=== PATIENT | female | born 1960 | race Hispanic/Latino ===

== ENCOUNTER 2017-12-04 01:20 | Emergency (ER) | payer OTHER ==
[~2017-12-04] VITALS: Ht 160 cm; Wt 149.7 kg
[2017-12-04] MEDS ORDERED: DEXAMETHASONE SOD PHOS 10 MG/1 ML VIAL INJ ONE (02:00)
== END 2017-12-04 02:15 | disposition home or self-care (01) ==
LOC: FSED 01:20 → EDBD 01:20 → FSED 02:15
DX: R42 Dizziness and giddiness (principal); J02.9 Acute pharyngitis, unspecified
CPT/HCPCS: 36415; 82948; 99282; J1100

== ENCOUNTER 2018-11-24 20:52 | Inpatient (IN) | payer OTHER ==
[~2018-11-24] VITALS: Ht 160 cm; Wt 140.2 kg
--- NOTE | 2018-11-24 21:56 | Diagnostic Imaging Report ---
EXAMINATION: PA and lateral views of the chest. COMPARISON: None CLINICAL HISTORY: Chest pain since yesterday DISCUSSION: Lines/tubes: None. Lungs: The lungs are well inflated and clear. There is no evidence of pneumonia or pulmonary edema. Pleura: There is no pleural effusion or pneumothorax. Heart and mediastinum: Cardiomediastinal silhouette is unremarkable. Pulmonary vasculature is normal. Bones and soft tissues: No acute bony abnormalities. Age appropriate degenerative changes in the thoracic spine IMPRESSION: No acute cardiopulmonary abnormalities. Signed by: Dr. Dax Glynn M.D. on 11/24/2018 9:53 PM
[2018-11-24] MEDS ORDERED: ASPIRIN 325 MG TAB ONE (23:37)
[2018-11-25] VITALS (8 sets, daily range): BP systolic 94–124; BP diastolic 17–60
[2018-11-25] MEDS ORDERED: POTASSIUM CHLORIDE 20 MEQ TAB CR PO ONE (04:19)
[2018-11-25] MEDS ORDERED: ENOXAPARIN SODIUM INJ 100 MG/ML SYR SC ONE (04:30)
[2018-11-25] MEDS ORDERED: ACETAMINOPHEN 325 MG TAB PO PRN (04:30)
[2018-11-25] MEDS ORDERED: ZOLPIDEM TARTRATE 5 MG TAB PO PRN (04:30)
[2018-11-25] MEDS ORDERED: ENALAPRILAT IV INJ 1.25 MG/ML VIAL IV PRN (04:30)
[2018-11-25] MEDS: NITROGLYCERIN 2% OINT 1 GM PKT TOP SCH ×3 (06:00→17:52)
--- OUTSIDE RECORDS SUMMARY | 2018-11-25 06:05 | XMS REPORT ---
Author Author Vicki Plascencia Organization e[employer] Address Unknown Phone Unavailable Care Team Providers Care Bevel Face Stoner And Polisher Name Role Phone Vicki Plascencia CP Unavailable Allergies, Adverse Reactions, Alerts Substance Reaction Event Type N.K.D.A. Info Not Available Non Drug Allergy Problems Problem Type Condition Code Onset Dates Condition Status Problem Other chronic pain G89.29 Active Problem Pain in left knee M25.562 Active Problem BMI 50.0-59.9, adult Z68.43 Active Problem Cardiomegaly I51.7 Active Problem BRUNILDA (obstructive sleep apnea) G47.33 Active Problem Essential hypertension I10 Active Problem Migraine with aura and without status migrainosus, not intractable G43.109 Active Problem Pain in right knee M25.561 Active Problem NAFLD (nonalcoholic fatty liver disease) K76.0 Active Problem Gastroesophageal reflux disease without esophagitis K21.9 Active Assessment Essential hypertension I10 Active Assessment Tender lymph node R59.1 Active Assessment Acute non-recurrent streptococcal tonsillitis J03.00 Active Medications Medication Code System Code Instructions Start Date End Date Status Dosage Augmentin [facility] 89056531629 875-125 MG Orally every 12 hrs Dec 06, 2017 Dec 13, 2017 Active 1 tablet Topamax [facility] 11651846638 25 MG Orally daily Nov 05, 2017 Active 1 tablet Dulera [facility] 09338569772 200-5 MCG/ACT Inhalation Twice a day Active 2 puffs Losartan Potassium [facility] 18413621151 50 mg Orally Once a day Dec 06, 2017 Active 1 tablet Pantoprazole Sodium [facility] [address]-78 40 mg Orally Once a day Active 1 tablet Vital Signs Date/Time: Dec 06, 2017 BMI 56.86 Index Weight 321 lbs Height 63" in Temperature 97.4 F Blood Pressure Diastolic 85 mm Hg Blood Pressure Systolic 158 mm Hg Results No Known Results Summary Purpose eClinicalWorks Submission
--- OUTSIDE RECORDS SUMMARY | 2018-11-25 06:05 | XMS REPORT ---
Author Author Vicki Plascencia Organization [employer] Address Unknown Phone Unavailable Care Team Providers Care Security Installation Technician Name Role Phone Vicki Plascencia Unavailable Allergies, Adverse Reactions, Alerts Substance Reaction Event Type N.K.D.A. Info Not Available Non Drug Allergy Problems Problem Type Condition Code Onset Dates Condition Status Problem Other chronic pain G89.29 Active Problem Pain in right knee M25.561 Active Problem Pain in left knee M25.562 Active Problem Essential hypertension I10 Active Problem Cardiomegaly I51.7 Active Problem Metabolic syndrome E88.81 Active Problem Gastroesophageal reflux disease without esophagitis K21.9 Active Problem Migraine with aura and without status migrainosus, not intractable G43.109 Active Problem BRUNILDA (obstructive sleep apnea) G47.33 Active Problem NAFLD (nonalcoholic fatty liver disease) K76.0 Active Assessment Migraine with aura and without status migrainosus, not intractable G43.109 Active Assessment Essential hypertension I10 Active Assessment Left-sided chest pain R07.9 Active Assessment BRUNILDA (obstructive sleep apnea) G47.33 Active Assessment Metabolic syndrome E88.81 Active Problem BMI 50.0-59.9, adult Z68.43 Active Medications Medication Code System Code Instructions Start Date End Date Status Dosage Topamax [facility] 64711496106 100 MG Orally bid August 08, 2018 Active bid Telmisartan [facility] 20101302595 20 mg Orally Once a day July 04, 2018 Active 1 tablet Olmesartan Medoxomil ND 77362839898 20 MG Orally Once a day June 28, 2018 Inactive 1 tablet Telmisartan [facility] 19964590310 20 MG Orally Once a day August 08, 2018 Active 1 tablets ProAir HFA [facility] 71328635102 108 (90 Base) MCG/ACT Inhalation every 6 hrs Active 2 puffs as needed Phentermine HCl [facility] 00670363592 37.5 MG Orally Once a day August 08, 2018 September 07, 2018 Active 1 tablet Topamax [facility] 98420663796 25 MG Orally daily Nov 05, 2017 Inactive 1 tablet Pantoprazole Sodium [facility] [address]-10 40 mg Orally Once a day Active 1 tablet Vital Signs Date/Time: August 08, 2018 BMI 58.27 Index Weight 329 lbs Height 63" in Temperature 97.8 F Blood Pressure Diastolic 70 mm Hg Blood Pressure Systolic 126 mm Hg Results No Known Results Summary Purpose eClinicalWorks Submission
--- OUTSIDE RECORDS SUMMARY | 2018-11-25 06:05 | XMS REPORT ---
Author Author Vicki Plascencia Organization [employer] Address Unknown Phone Unavailable Care Team Providers Care Tanning Drum Operator Name Role Phone Vicki Plascencia CP Unavailable Allergies, Adverse Reactions, Alerts Substance Reaction Event Type N.K.D.A. Info Not Available Non Drug Allergy Problems Problem Type Condition Code Onset Dates Condition Status Assessment Pain in right knee M25.561 Active Problem BMI 50.0-59.9, adult Z68.43 Active Problem Other chronic pain G89.29 Active Problem BRUNILDA (obstructive sleep apnea) G47.33 Active Problem NAFLD (nonalcoholic fatty liver disease) K76.0 Active Problem Cardiomegaly I51.7 Active Problem Pain in right knee M25.561 Active Problem Pain in left knee M25.562 Active Problem Gastroesophageal reflux disease without esophagitis K21.9 Active Problem Migraine with aura and without status migrainosus, not intractable G43.109 Active Assessment Gastroesophageal reflux disease without esophagitis K21.9 Active Assessment Right shoulder tendonitis M75.81 Active Assessment BMI 50.0-59.9, adult Z68.43 Active Assessment Other chronic pain G89.29 Active Assessment BRUNILDA (obstructive sleep apnea) G47.33 Active Assessment Pain in left knee M25.562 Active Medications Medication Code System Code Instructions Start Date End Date Status Dosage Dulera [facility] 96441470774 200-5 MCG/ACT Inhalation Twice a day Active 2 puffs Pantoprazole Sodium [facility] 98635069871 40 mg Orally Once a day Jan 26, 2017 Active 1 tablet Diclofenac Sodium [facility] 95193176116 1 % Transdermal bid prn June 10, 2017 Dec 07, 2017 Active as directed Clobeta Cream NDC 0 Active not defined Albuterol Sulfate HFA [facility] [address]-62 108 (90 Base) MCG/ACT Inhalation every 4 hrs Active 2 puffs as needed Ibuprofen ND 21058306496 200 MG Orally Once a day Active 4 tablet with food or milk as needed Medrol ND 44937485046 4 MG Orally as directed June 10, 2017 Active as directed Vital Signs Date/Time: June 10, 2017 BMI 58.45 Index Weight 330 lbs Height 63" in Temperature 98.5 F Blood Pressure Diastolic 79 mm Hg Blood Pressure Systolic 131 mm Hg Results No Known Results Summary Purpose eClinicalWorks Submission
--- OUTSIDE RECORDS SUMMARY | 2018-11-25 06:05 | XMS REPORT ---
Author Author Vicki Plascencia Organization [employer] Address Unknown Phone Unavailable Care Team Providers Care Commutator Tester Name Role Phone Vicki Plascencia CP Unavailable Allergies No Known Allergies Problems Problem Type Condition Code Onset Dates Condition Status Problem Other chronic pain G89.29 Active Problem Pain in right knee M25.561 Active Problem Pain in left knee M25.562 Active Problem BMI 50.0-59.9, adult Z68.43 Active Problem Essential hypertension I10 Active Problem Cardiomegaly I51.7 Active Problem Metabolic syndrome E88.81 Active Problem Gastroesophageal reflux disease without esophagitis K21.9 Active Problem Migraine with aura and without status migrainosus, not intractable G43.109 Active Problem BRUNILDA (obstructive sleep apnea) G47.33 Active Problem NAFLD (nonalcoholic fatty liver disease) K76.0 Active Medications Medication Code System Code Instructions Start Date End Date Status Dosage Pantoprazole Sodium [facility] [address]-58 40 mg Orally Once a day Active 1 tablet Results No Known Results Summary Purpose eClinicalWorks Submission
--- OUTSIDE RECORDS SUMMARY | 2018-11-25 06:05 | XMS REPORT ---
Author Author Vicki Plascencia Organization [employer] Address Unknown Phone Unavailable Care Team Providers Care Cork Painter And Grader Name Role Phone Vicki Plascencia CP Unavailable Allergies No Known Allergies Problems Problem Type Condition Code Onset Dates Condition Status Problem Pain in right knee M25.561 Active Problem Pain in left knee M25.562 Active Problem Other chronic pain G89.29 Active Problem BMI 50.0-59.9, adult Z68.43 Active Problem Migraine with aura and without status migrainosus, not intractable G43.109 Active Medications Medication Code System Code Instructions Start Date End Date Status Dosage Nexium NDC 45443855496 40 MG Orally Once a day Active 1 capsule Results No Known Results Summary Purpose eClinicalWorks Submission
--- OUTSIDE RECORDS SUMMARY | 2018-11-25 06:05 | XMS REPORT ---
Author Author Vicki Plascencia Organization [employer] Address Unknown Phone Unavailable Care Team Providers Care Larry Operator Name Role Phone Vicki Plascencia CP Unavailable Allergies No Known Allergies Problems Problem Type Condition Code Onset Dates Condition Status Problem BMI 50.0-59.9, adult Z68.43 Active Problem [...] Date End Date Status Dosage Pantoprazole Sodium [facility] [address]-63 40 mg Orally Once a day Active 1 tablet Results No Known Results Summary Purpose eClinicalWorks Submission
--- OUTSIDE RECORDS SUMMARY | 2018-11-25 06:05 | XMS REPORT ---
Author Author Vicki Plascencia Organization [employer] Address Unknown Phone Unavailable Care Team Providers Care Tailor Garment Fitter Name Role Phone Vicki Plascencia CP Unavailable Allergies, Adverse Reactions, Alerts Substance Reaction Event Type N.K.D.A. Info Not Available Non Drug Allergy Problems Problem Type Condition Code Onset Dates Condition Status Assessment Daily headache R51 Active Problem BMI 50.0-59.9, adult Z68.43 Active Problem Other chronic pain G89.29 Active Assessment Pain in left knee M25.562 Active Assessment Pain in right knee M25.561 Active Problem BRUNILDA (obstructive sleep apnea) G47.33 [...] Start Date End Date Status Dosage Dulera [facility] 73706720008 200-5 MCG/ACT Inhalation Twice a day Active 2 puffs Pantoprazole Sodium [facility] 04217559628 40 mg Orally Once a day Active 1 tablet Medrol ND 19607658856 4 MG Orally as directed June 10, 2017 Active as directed Albuterol Sulfate HFA [facility] [address]-59 108 (90 Base) MCG/ACT Inhalation every 4 hrs Active 2 puffs as needed Clobeta Cream NDC 0 Active not defined Diclofenac Sodium ND 43345392316 1 % Transdermal bid prn June 10, 2017 Dec 07, 2017 Active as directed Topamax [facility] 57198496587 25 MG Orally daily Nov 05, 2017 Active 1 tablet Ibuprofen ND 66818139571 200 MG Orally Once a day Active 4 tablet with food or milk as needed Vital Signs Date/Time: Nov 05, 2017 BMI 60.22 Index Weight 340 lbs Height 63" in Temperature 98.3 F Blood Pressure Diastolic 82 mm Hg Blood Pressure Systolic 152 mm Hg Results No Known Results Summary Purpose eClinicalWorks Submission
--- OUTSIDE RECORDS SUMMARY | 2018-11-25 06:05 | XMS REPORT ---
Author Author Vicki Plascencia Organization [employer] Address Unknown Phone Unavailable Care Team Providers Care [place] Assessor Name Role Phone Vicki Plascencia CP Unavailable Allergies No Known Allergies Problems Problem Type Condition Code Onset Dates Condition Status Assessment Gastroesophageal reflux disease without esophagitis K21.9 Active Problem BMI 50.0-59.9, adult Z68.43 Active [...] Date End Date Status Dosage Pantoprazole Sodium [facility] 23490075493 40 mg Orally Once a day Jan 26, 2017 Active 1 tablet Results No Known Results Summary Purpose eClinicalWorks Submission
--- OUTSIDE RECORDS SUMMARY | 2018-11-25 06:05 | XMS REPORT ---
Author Author Vicki Plascencia Organization [employer] Address Unknown Phone Unavailable Care Team Providers Care Dam Attendant Name Role Phone Vicki Plascencia CP Unavailable Allergies, Adverse Reactions, Alerts Substance Reaction Event Type N.K.D.A. Info Not Available Non Drug Allergy Problems Problem Type Condition Code Onset Dates Condition Status Assessment Atypical pneumonia J18.9 Active Problem BMI 50.0-59.9, adult Z68.43 Active [...] status migrainosus, not intractable G43.109 Active Assessment NAFLD (nonalcoholic fatty liver disease) K76.0 Active Assessment BRUNILDA (obstructive sleep apnea) G47.33 Active Assessment Cardiomegaly I51.7 Active Assessment Acute tracheobronchitis J20.9 Active Medications Medication Code System Code Instructions Start Date End Date Status Dosage Celebrex ND 71688569011 100 mg Orally Once a day Jan 26, 2017 May 26, 2017 Active 1 capsule with food Albuterol Sulfate HFA [facility] [address]-29 108 (90 Base) MCG/ACT Inhalation every 4 hrs Active 2 puffs as needed Clobeta Cream NDC 0 Active not defined MethylPREDNISolone ND 73662103990 4 MG Orally As directed Apr 06, 2017 Active as directed Pantoprazole Sodium ND 96821821606 40 mg Orally Once a day Jan 26, 2017 Active 1 tablet Nexium ND 30150115929 40 MG Orally Once a day Active 1 capsule Levofloxacin ND 96438995093 750 MG Orally Once a day for 5 days Apr 11, 2017 Active 1 tablet Ibuprofen ND 89534932355 200 MG Orally Once a day Active 4 tablet with food or milk as needed Vital Signs Date/Time: Apr 06, 2017 BMI 57.56 Index Weight 325 lbs Height 63" in Temperature 96.9 F Blood Pressure Diastolic 83 mm Hg Blood Pressure Systolic 130 mm Hg Results No Known Results Summary Purpose eClinicalWorks Submission
--- OUTSIDE RECORDS SUMMARY | 2018-11-25 06:05 | XMS REPORT ---
Author Author Vicki Plascencia Organization [employer] Address Unknown Phone Unavailable Care Team Providers Care Data Center Project Manager Name Role Phone Vicki Plascencia CP Unavailable Allergies No Known Allergies Problems Problem Type Condition Code Onset Dates Condition Status Problem Other chronic pain G89.29 Active Problem Pain in right knee M25.561 Active Problem Pain in left knee M25.562 Active Assessment Left-sided chest pain R07.9 Active Problem BMI 50.0-59.9, adult Z68.43 Active Problem Essential hypertension I10 Active Problem Cardiomegaly I51.7 Active Problem Metabolic syndrome E88.81 Active Problem Gastroesophageal reflux disease without esophagitis K21.9 Active Problem Migraine with aura and without status migrainosus, not intractable G43.109 Active Problem BRUNILDA (obstructive sleep apnea) G47.33 Active Problem NAFLD (nonalcoholic fatty liver disease) K76.0 Active Medications No Known Medications Results No Known Results Summary Purpose eClinicalWorks Submission
--- OUTSIDE RECORDS SUMMARY | 2018-11-25 06:05 | XMS REPORT ---
Author Author Vicki Plascencia Organization [employer] Address Unknown Phone Unavailable Care Team Providers Care Egg Sorter Name Role Phone Vicki Plascencia CP Unavailable Allergies, Adverse Reactions, Alerts Substance Reaction Event Type N.K.D.A. Info Not Available Non Drug Allergy Problems Problem Type Condition Code Onset Dates Condition Status Assessment Colon cancer screening Z12.11 Active Assessment Pain in left knee M25.562 Active Assessment Other chronic pain G89.29 Active Problem Pain in right knee M25.561 Active Problem Pain in left knee M25.562 Active Problem Other chronic pain G89.29 Active Assessment Encounter to establish care Z76.89 Active Assessment Pain in right knee M25.561 Active Problem BMI 50.0-59.9, adult Z68.43 Active Problem Migraine with aura and without status migrainosus, not intractable G43.109 Active Assessment BMI 50.0-59.9, adult Z68.43 Active Assessment Migraine with aura and without status migrainosus, not intractable G43.109 Active Assessment Cervical cancer screening Z12.4 Active Assessment Breast cancer screening Z12.31 Active Medications Medication Code System Code Instructions Start Date End Date Status Dosage Ibuprofen NDC 12182647142 200 MG Orally Once a day Active 4 tablet with food or milk as needed Clobeta Cream NDC 0 Active not defined Tylenol/Codeine #3 [facility] 85810213768 300-30 MG Orally once every night as needed for pain Jan 18, 2017 Feb 17, 2017 Active 1 tablet as needed Nexium NDC 88248473027 40 MG Orally Once a day Active 1 capsule Vital Signs Date/Time: Jan 18, 2017 BMI 59.34 Index Weight 335 lbs Height 63" in Temperature 96.6 F Blood Pressure Diastolic 88 mm Hg Blood Pressure Systolic 153 mm Hg Results No Known Results Summary Purpose eClinicalWorks Submission
--- OUTSIDE RECORDS SUMMARY | 2018-11-25 06:05 | XMS REPORT ---
Author Author Vicki Plascencia Organization [employer] Address Unknown Phone Unavailable Care Team Providers Care Cementer Machine Applicator Name Role Phone Vicki Plascencia Unavailable Allergies, [...] (nonalcoholic fatty liver disease) K76.0 Active Assessment BMI 50.0-59.9, adult Z68.43 Active Assessment Chest pain on breathing R07.1 Active Assessment NAFLD (nonalcoholic fatty liver disease) K76.0 Active Assessment Essential hypertension I10 Active Problem BMI 50.0-59.9, adult Z68.43 Active Medications Medication Code System Code Instructions Start Date End Date Status Dosage ProAir HFA [facility] 01968937160 108 (90 Base) MCG/ACT Inhalation every 6 hrs Active 2 puffs as needed Phentermine HCl [facility] 26982415419 37.5 MG Orally Once a day August 08, 2018 Active 1 tablet Telmisartan [facility] 72824309168 20 MG Orally Once a day August 08, 2018 Active 1 tablets Pantoprazole Sodium [facility] [address]-68 40 mg Orally Once a day Active 1 tablet Topamax [facility] 76963545684 100 mg Orally daily August 08, 2018 Active bid Vital Signs Date/Time: September 27, 2018 BMI 57.21 Index Weight 323 lbs Height 63" in Temperature 97.6 F Blood Pressure Diastolic 74 mm Hg Blood Pressure Systolic 129 mm Hg Results No Known Results Summary Purpose eClinicalWorks Submission
--- OUTSIDE RECORDS SUMMARY | 2018-11-25 06:05 | XMS REPORT ---
Author Author Vicki Plascencia Organization [employer] Address Unknown Phone Unavailable Care Team Providers Care Slime Plant Operator Name Role Phone Vicki Plascencia CP [...] Gastroesophageal reflux disease without esophagitis K21.9 Active Medications Medication Code System Code Instructions Start Date End Date Status Dosage Pantoprazole Sodium [facility] 82888876934 40 Orally Once a day Active 1 tablet Results No Known Results Summary Purpose eClinicalWorks Submission
--- OUTSIDE RECORDS SUMMARY | 2018-11-25 06:05 | XMS REPORT | Continuity of Care Document ---
Author Author [employer] Address Unknown Phone Unavailable Care Team Providers Care Mini Shifter Name Role Phone [employer] Unavailable Unavailable Problems Problem Status Onset Date Classification Date Reported Comments Source Pain in right knee Active Problem 11/12/2018 Enayet Rahim Pain in left knee Active Problem 11/12/2018 Enkadeet Obinnam Other chronic pain Active Problem 11/12/2018 Enlavern Yeboahm BMI 50.0-59.9, adult Active Diagnosis 11/12/2018 Enkadeet Obinnam Migraine with aura and without status migrainosus, not intractable Active Problem 11/12/2018 Enlavern Yeboahm Cardiomegaly Active Problem 11/12/2018 Enkadeet Raashleym BRUNILDA (obstructive sleep apnea) Active Problem 11/12/2018 Enkadeet Rahim NAFLD (nonalcoholic fatty liver disease) Active Problem 11/12/2018 Enlavern Yeboahm Gastroesophageal reflux disease without esophagitis Active Problem 11/12/2018 Jelena Mccabe Encounter to establish care Active Diagnosis 01/22/2017 Enlavern Yeboahm Cervical cancer screening Active Diagnosis 01/22/2017 Jelena Yeboahm Breast cancer screening Active Diagnosis 01/22/2017 Jelena Yeboahm Left-sided chest pain Active Diagnosis 10/07/2018 Enkadeet Raashleym Essential hypertension Active Problem 11/12/2018 Enayet Rahim Metabolic syndrome Active Problem 11/12/2018 Enlavern Yeboahm Atypical pneumonia Active Diagnosis 04/13/2017 Jelena Yeboahm Acute tracheobronchitis Active Diagnosis 04/13/2017 Jelena Mccabe Chest pain on breathing Active Diagnosis 10/05/2018 Jelena Yeboahm Right shoulder tendonitis Active Diagnosis 06/16/2017 Jelena Mccabe Tender lymph node Active Diagnosis 12/11/2017 Jelena Mccabe Acute non-recurrent streptococcal tonsillitis Active Diagnosis 12/11/2017 Jelena Yeboahm Daily headache Active Diagnosis [facility]/11[facility] Medication Details Route Status Patient Instructions Ordering Provider Order Date Source Phentermine HCl 1 tablet Orally Active 37.5 MG Orally Once a day [facility] 08[facility]08[facility]2018 [facility] Telmisartan 1 tablets Orally Active 20 MG Orally Once a day [facility] 08/08/2018 [facility] Topamax bid Orally Active 100 mg Orally daily [facility] 08/08/2018 [facility] Telmisartan 1 tablet Orally Active 20 mg Orally Once a day [facility] 07/04/2018 [facility] Olmesartan Medoxomil 1 tablet Orally Active 20 MG Orally Once a day [facility] 06/28/2018 [facility] Augmentin 1 tablet Orally Active 875-125 MG Orally every 12 hrs [facility] 12/06/2017 [facility] Losartan Potassium 1 tablet Orally Active 50 mg Orally Once a day [facility] 12/06/2017 [facility] Topamax 1 tablet Orally Active 25 MG Orally daily [facility] 11/05/2017 [facility] Diclofenac Sodium as directed Transdermal Active 1 % Transdermal bid prn [facility] 06/10/2017 [facility] Medrol as directed Orally Active 4 MG Orally as directed [facility] 06/10/2017 [facility] Levofloxacin 1 tablet Orally Active 750 MG Orally Once a day for 5 days [facility] 04/11/2017 [facility] MethylPREDNISolone as directed Orally Active 4 MG Orally As directed [facility] 04/06/2017 [facility] Pantoprazole Sodium 1 tablet Orally Active 40 mg Orally Once a day [facility] 01/26/2017 [facility] Celebrex 1 capsule with food Orally Active 100 mg Orally Once a day [facility] 01/26/2017 [facility] Tylenol/Codeine #3 1 tablet as needed Orally Active 300-30 MG Orally once every night as needed for pain [facility] 01/18/2017 [facility] Nexium 1 capsule Orally Active 40 MG Orally Once a day [facility] Ibuprofen 4 tablet with food or milk as needed Orally Active 200 MG Orally Once a day [facility] Albuterol Sulfate HFA 2 puffs as needed Inhalation Active 108 (90 Base) MCG/ACT Inhalation every 4 hrs [facility] Jelena Mccabe Clobeta Cream not defined NA Active [facility] Jelena Mccabe ProAir HFA 2 puffs as needed Inhalation Active 108 (90 Base) MCG/ACT Inhalation every 6 hrs [facility] Jelena Mccabe Pantoprazole Sodium 1 tablet Orally Active 40 mg Orally Once a day [facility] Jelena Mccabe Dulera 2 puffs Inhalation Active 200-5 MCG/ACT Inhalation Twice a day [facility] Jelena Mccabe Pantoprazole Sodium 1 tablet Orally Active 40 mg Orally Once a day [facility] Jelena Mccabe Topamax 1 tablet Orally Active 25 Orally daily [facility] Jelena Mccabe Pantoprazole Sodium 1 tablet Orally Active 40 Orally Once a day [facility] Jelena Mccabe Allergies, Adverse Reactions, Alerts Substance Category Reaction Severity Reaction type Status Date Reported Comments Source N.K.D.A. Adverse Reaction Info Not Available Adverse Reaction 11/10/2018 Enayet Rahim Immunizations No Data Provided for This Section Results No Data Provided for This Section Pathology Reports No Data Provided for This Section Diagnostic Reports No Data Provided for This Section Consultation Notes No Data Provided for This Section Discharge Summaries No Data Provided for This Section History and Physicals No Data Provided for This Section Vital Signs Vital Sign Value Date Comments Source Weight 311 11/10/2018 Enayet Rahim Temperature Oral (F) 98 F 11/10/2018 Enayet Rahim Diastolic (mm Hg) 72 11/10/2018 Enayet Rahim Systolic (mm Hg) 136 11/10/2018 Enayet Rahim Weight 323 09/27/2018 Enayet Rahim Temperature Oral (F) 97.6 F 09/27/2018 Enayet Rahim Diastolic (mm Hg) 74 09/27/2018 Enayet Rahim Systolic (mm Hg) 129 09/27/2018 Enayet Rahim Weight 329 08/08/2018 Enayet Rahim Temperature Oral (F) 97.8 F 08/08/2018 Enayet Rahim Diastolic (mm Hg) 70 08/08/2018 Enayet Rahim Systolic (mm Hg) 126 08/08/2018 Enayet Rahim Weight 321 12/06/2017 Enayet Rahim Temperature Oral (F) 97.4 F 12/06/2017 Enayet Rahim Diastolic (mm Hg) 85 12/06/2017 Enayet Rahim Systolic (mm Hg) 158 12/06/2017 Enayet Rahim Weight 340 11/05/2017 Enayet Rahim Temperature Oral (F) 98.3 F 11/05/2017 Enayet Rahim Diastolic (mm Hg) 82 11/05/2017 Enayet Rahim Systolic (mm Hg) 152 11/05/2017 Enayet Rahim Weight 330 06/10/2017 Enayet Rahim Temperature Oral (F) 98.5 F 06/10/2017 Enayet Rahim Diastolic (mm Hg) 79 06/10/2017 Enayet Rahim Systolic (mm Hg) 131 06/10/2017 Enayet Rahim Weight 328 04/15/2017 Enayet Rahim Temperature Oral (F) 98.1 F 04/15/2017 Enayet Rahim Diastolic (mm Hg) 78 04/15/2017 Enayet Rahim Systolic (mm Hg) 132 04/15/2017 Enayet Rahim Weight 328 04/15/2017 Enayet Rahim Temperature Oral (F) 98.1 F 04/15/2017 Enayet Rahim Diastolic (mm Hg) 78 04/15/2017 Enayet Rahim Systolic (mm Hg) 132 04/15/2017 Enayet Rahim Weight 325 04/06/2017 Enayet Rahim Temperature Oral (F) 96.9 F 04/06/2017 Enayet Rahim Diastolic (mm Hg) 83 04/06/2017 Enayet Rahim Systolic (mm Hg) 130 04/06/2017 Enayet Rahim Weight 335 01/18/2017 Enayet Rahim Temperature Oral (F) 96.6 F 01/18/2017 Enayet Rahim Diastolic (mm Hg) 88 01/18/2017 Enayet Rahim Systolic (mm Hg) 153 01/18/2017 Enayet Rahim Encounters Location Location Details Encounter Type Encounter Number Reason For Visit Attending Provider ADM Date DC Date Status Source Departed Emergency Room [id number] MAYA LÓPEZ MD 12/04/2017 12/04/2017 [facility] Procedures No Data Provided for This Section Assessment and Plan No Data Provided for This Section Plan of Care Plan of Care Date Source Discharge Date 12/04/17 2:15am Disposition HOME, SELF-CARE Condition at Discharge Stable Instructions/Education Provided Sore Throat - Adult Forms Provided Work/School Excuse Prescriptions See Medication Section Additional Instructions/Education 1. Pls see your doctor on Wednesday for lab work in the setting of your new diet 2. As discussed a thorough physical exam done today shows no focal source of infection, this may change and if you have shortness of breath, chest pain, or any other concerning symptoms please return to the ED 3. Please see your PCP regardless on Wednesday12/04/2017 [facility] Social History Social History Date Source Smoking Status Start Date Stop Date Never Smoker 12/04/2017 [facility] Family History No Data Provided for This Section Advance Directives Order Name Results Value Date Source Advance Directives Advance Directives Directive Response Recorded Date/Time Does the patient have an advance directive? No 12/04/17 2:10am If yes, is advance directive on file with [facility]? No 12/04/17 2:10am If not on file with [facility] will patient provide a copy? No 12/04/17 2:10am Do you have a Directive to Physician? No 12/04/17 2:10am Do you have a Medical Power of Flat Grinder Operator? No 12/04/17 2:10am Do you have an out of hospital Do Not Resuscitate Order? No 12/04/17 2:10am Do you have any special needs we should be aware of? No 12/04/17 2:10am Do you have a support person here with you today? Yes 12/04/17 2:10am Did patient receive Notice of Privacy Practices? Yes 12/04/17 2:10am Did patient receive patient rights and responsibilities? Yes 12/04/17 2:10am 12/04/2017 [facility] Functional Status No Data Provided for This Section
--- OUTSIDE RECORDS SUMMARY | 2018-11-25 06:05 | XMS REPORT ---
Author Author Vicki Plascencia Organization [employer] Address Unknown Phone Unavailable Care Team Providers Care Addiction Therapist Name Role Phone Vicki Plascencia CP Unavailable Allergies, Adverse Reactions, Alerts Substance Reaction Event Type N.K.D.A. Info Not Available Non Drug Allergy Problems Problem Type Condition Code Onset Dates Condition Status Assessment Cardiomegaly I51.7 Active Problem BMI 50.0-59.9, adult Z68.43 Active Problem Other chronic pain G89.29 Active Assessment BMI 50.0-59.9, adult Z68.43 Active Assessment BRUNILDA (obstructive sleep apnea) G47.33 Active Problem BRUNILDA (obstructive sleep apnea) G47.33 [...] Start Date End Date Status Dosage Ibuprofen [facility] 98791159787 200 MG Orally Once a day Active 4 tablet with food or milk as needed Albuterol Sulfate HFA [facility] [address]-19 108 (90 Base) MCG/ACT Inhalation every 4 hrs Active 2 puffs as needed Clobeta Cream ND 0 Active not defined Pantoprazole Sodium [facility] 56830862642 40 mg Orally Once a day Jan 26, 2017 Active 1 tablet Vital Signs Date/Time: Apr 15, 2017 BMI 58.10 Index Weight 328 lbs Height 63" in Temperature 98.1 F Blood Pressure Diastolic 78 mm Hg Blood Pressure Systolic 132 mm Hg Results No Known Results Summary Purpose [employer] Submission
--- OUTSIDE RECORDS SUMMARY | 2018-11-25 06:06 | XMS REPORT ---
Author Author Vicki Plascencia Organization [employer] Address Unknown Phone Unavailable Care Team Providers Care Film And Video Editor Name Role Phone Vicki Plascencia Unavailable Allergies, [...] (nonalcoholic fatty liver disease) K76.0 Active Assessment Gastroesophageal reflux disease without esophagitis K21.9 Active Assessment Migraine with aura and without status migrainosus, not intractable G43.109 Active Assessment Essential hypertension I10 Active Assessment BMI 50.0-59.9, adult Z68.43 Active Problem BMI 50.0-59.9, adult Z68.43 Active Medications Medication Code System Code Instructions Start Date End Date Status Dosage Telmisartan [facility] 25094298921 20 MG Orally Once a day August 08, 2018 Active 1 tablets Topamax [facility] 61000429535 100 mg Orally daily August 08, 2018 Active bid Pantoprazole Sodium [facility] [address]-69 40 mg Orally Once a day Active 1 tablet Phentermine HCl [facility] 03155594892 37.5 MG Orally Once a day August 08, 2018 Active 1 tablet Topamax [facility] 93767655623 25 Orally daily Inactive 1 tablet ProAir HFA [facility] 04343744391 108 (90 Base) MCG/ACT Inhalation every 6 hrs Active 2 puffs as needed Vital Signs Date/Time: Nov 10, 2018 BMI 55.09 Index Weight 311 lbs Height 63" in Temperature 98 F Blood Pressure Diastolic 72 mm Hg Blood Pressure Systolic 136 mm Hg Results No Known Results Summary Purpose [employer] Submission
--- OUTSIDE RECORDS SUMMARY | 2018-11-25 06:06 | XMS REPORT ---
Author Author Vicki Plascencia Organization [employer] Address Unknown Phone Unavailable Care Team Providers Care Weight Checker Name Role Phone Vicki Plascencia CP Unavailable [...] Date End Date Status Dosage Pantoprazole Sodium [facility] [address]-76 40 mg Orally Once a day Active 1 tablet Results No Known Results Summary Purpose [employer] Submission
--- OUTSIDE RECORDS SUMMARY | 2018-11-25 06:06 | XMS REPORT ---
Author Author [facility] Address Unknown Phone Unavailable Care Team Providers Care Television Service Engineer Name Role Phone Brianna MELENDREZ Unavailable Unavailable Problems This patient has no known problems. Allergies, Adverse Reactions, Alerts This patient has no known allergies or adverse reactions. Medications This patient has no known medications. Results Test Description Test Time Test Comments Text Results Atomic Results Result Comments CXR 2 VIEW - [facility] 2018-11-24 21:52:00 [place] [id number] Patient Name: JERSON FLORENCE MR #: [id number] : 1960 Age/Sex: 58/F Req #: [id number] Adm Physician: Ordered by: ANSON MELENDREZ MD Report #: [id number] Location: [facility] Room/Bed: Procedure: [id number] HOPD/CXR 2 VIEW - [facility] Exam Date: 11/24/18 Exam Time: 2144 REPORT STATUS: Signed EXAMINATION: PA and lateral views of the chest. COMPARISON: None CLINICAL HISTORY: Chest pain since yesterday DISCUSSION: Lines/tubes: None. Lungs: The lungs are well inflated and clear. There is no evidence of pneumonia or pulmonary edema. Pleura: There is no pleural effusion or pneumothorax. Heart and mediastinum: Cardiomediastinal silhouette is unremarkable. Pulmonary vasculature is normal. Bones and soft tissues: No acute bony abnormalities. Age appropriate degenerative changes in the thoracic spine IMPRESSION: No acute cardiopulmonary abnormalities. Signed by: Dr. Hamlet Glynn M.D. on 11/24/2018 9:53 PM Dictated By: HAMLET GLYNN MD 53 Transcribed By: SAJI on 11/24/182152 COPY TO: ANSON MELENDREZ MD SCR MAMM BILATERAL ESTRADA CAD DIGITAL 2018-04-12 13:44:25 - SCR MAMM BILATERAL ESTRADA CAD DIGITALBILATERAL DIGITAL SCREENING MAMMOGRAM 3D/2D WITH CAD: 04/12/2018CLINICAL: Asymptomatic. Digital breast tomosynthesis was performed in addition to routine CC and MLO views. Current mammographic images were evaluated by either a [employer] M-Vu or a [employer] ImageChecker CAD (computer aided detection system). Comparison is made to exam dated 02/13/2017 mammogram - [facility]. There are scattered fibroglandular tissues in both breasts. There are benign calcifications in both breasts. No suspicious mass, architectural distortion, malignant type calcification, or lymph node abnormality detected. Breast architecture is stable compared to prior exams.IMPRESSION: BENIGNThere is no mammographic evidence of malignancy. Resume annual screening mammography in one year. Miki Perez M.D. ss/penrad:04/12/2018 13:44:25 Construction Project Assistant: Kallie Cochran FW, [facility] sent: BIRADS 1-2 Normal Mammogram BI-RADS: 2 Benign
--- OUTSIDE RECORDS SUMMARY | 2018-11-25 06:09 | XMS REPORT | Continuity of Care Document ---
Author Author [employer] Organization [employer] Address Unknown Phone Unavailable Care Team Providers Care Drapery Worker Name Role Phone [employer] Unavailable Unavailable Problems Problem Status [...] Yeboahm Daily headache Active Diagnosis [facility] Medication Details Route Status Patient Instructions Ordering Provider Order Date Source Phentermine HCl 1 tablet Orally Active 37.5 MG Orally Once a day [facility] 08/08/2018 [facility] Telmisartan 1 tablets Orally Active 20 MG Orally Once a day [facility] 08/08/2018 [facility] Topamax bid Orally Active 100 mg Orally daily [facility] 08/08/2018 [facility] Telmisartan 1 tablet Orally Active 20 mg Orally Once a day [facility] 07/04/2018 [facility] Olmesartan Medoxomil 1 tablet Orally Active 20 MG Orally Once a day [facility] 06/28/2018 [facility] Augmentin 1 tablet Orally Active 875-125 MG Orally every 12 hrs [facility] 12/06/2017 [facility] Losartan Potassium 1 tablet Orally Active 50 mg Orally Once a day [facility] 12/06/2017 [facility] Topamax 1 tablet Orally Active 25 MG Orally daily [facility] 11/05/2017 [facility] Diclofenac Sodium as directed Transdermal Active 1 % Transdermal bid prn [facility] 06/10/2017 [facility] Medrol as directed Orally Active 4 MG Orally as directed [facility] 06/10/2017 [facility] Levofloxacin 1 tablet Orally Active 750 MG Orally Once a day for 5 days [facility] 04/11/2017 [facility] MethylPREDNISolone as directed Orally Active 4 MG Orally As directed [facility] 04/06/2017 [facility] Pantoprazole Sodium 1 tablet Orally Active 40 mg Orally Once a day [facility] 01/26/2017 [facility] Celebrex 1 capsule with food Orally Active 100 mg Orally Once a day [facility] 01/26/2017 [facility] Tylenol/Codeine #3 1 tablet as needed Orally Active 300-30 MG Orally once every night as needed for pain [facility] 01/18/2017 [facility] Nexium 1 capsule Orally Active 40 MG Orally Once a day [facility] Ibuprofen 4 tablet with food or milk as needed Orally Active 200 MG Orally Once a day [facility] Albuterol Sulfate HFA 2 puffs as needed Inhalation Active 108 (90 Base) MCG/ACT Inhalation every 4 hrs [facility] Jelena Mccabe Clobeta Cream not defined NA Active [facility] Jelena Mccabe ProAir HFA 2 puffs as needed Inhalation Active 108 (90 Base) MCG/ACT Inhalation every 6 hrs [facility] Jelena Mccabe Pantoprazole Sodium 1 tablet Orally Active 40 mg Orally Once a day [facility] Jelena Mccabe Dulera 2 puffs Inhalation Active 200-5 MCG/ACT Inhalation Twice a day [facility] Jelena Mccabe Pantoprazole Sodium 1 tablet Orally Active 40 mg Orally Once a day [facility] Jelena Mccabe Topamax 1 tablet Orally Active 25 Orally daily [facility] Jelena Mccabe Pantoprazole Sodium 1 tablet Orally [...] DC Date Status Source Departed Emergency Room [id number] MAYA LÓPEZ MD 12/04/2017 12/04/2017 [facility] Procedures No Data Provided for This Section [...] Please see your PCP regardless on Wednesday12/04/2017 [facility] Social History Social History Date Source Smoking Status Start Date Stop Date Never Smoker 12/04/2017 [facility] Family History No Data Provided for This Section Advance Directives Order Name Results Value Date Source Advance Directives Advance Directives Directive Response Recorded Date/Time Does the patient have an advance directive? No 12/04/17 2:10am If yes, is advance directive on file with [facility]? No 12/04/17 2:10am If not on file with [facility] will patient provide a copy? No 12/04/17 2:10am Do you have a Directive to Physician? No 12/04/17 2:10am Do you have a Medical Power of Soda Drier Feeder? No 12/04/17 2:10am Do you have an [...] rights and responsibilities? Yes 12/04/17 2:10am 12/04/2017 [facility] Functional Status No Data Provided for This Section
--- NOTE | 2018-11-25 07:10 | NUR ---
PATIENT IS AWAKE AND IN STABLE CONDITION WITH NO S/S OF RESPIRATORY DISTRESS. PATIENT C/O CHEST PAIN 4/10 BUT IS REFUSING PAIN MEDICATION. TELEMETRY APPLIED. FAMILY MEMBER PRESENT IN ROOM. CALL LIGHT IS WITHIN REACH, PATIENT INSTRUCTED TO CALL FOR ASSISTANCE NEEDED.
[2018-11-25 07:19] LABS: CREATINE KINASE MB 1.9 ng/mL (0-5.0)
[2018-11-25] MEDS ORDERED: MICARDIS40 MG PO (07:19)
[2018-11-25] MEDS ORDERED: PROAIR HFA INH8.5 GM INH (07:28)
[2018-11-25] MEDS: PANTOPRAZOLE SOD 40 MG TABEC PO SCH (08:46)
[2018-11-25] MEDS: FAMOTIDINE 20 MG TAB PO SCH ×2 (08:46→21:35)
[2018-11-25] MEDS: TOPIRAMATE 25 MG TAB PO SCH ×2 (08:46→16:00)
[2018-11-25] MEDS: ASPIRIN 325 MG TAB PO SCH (08:46)
--- NOTE | 2018-11-25 13:24 | NUR ---
PATIENT OFF THE UNIT AT 1320 PER WHEELCHAIR TO NUCLEAR MEDICINE. PATIENT IS IN STABLE CONDITION WITH NO S/S OF RESPIRATORY DISTRESS. NO PAIN VOICED. TELEMETRY APPLIED.
[2018-11-25] MEDS ORDERED: REGADENOSON 0.4 MG/5 ML SYR IV ONE (14:30)
--- NOTE | 2018-11-25 15:31 | NUR ---
PATIENT BACK ON THE UNIT- PATIENT IN STABLE CONDITION WITH NO S/S OF RESPIRATORY DISTRESS. NO PAIN VOICED. TELEMETRY APPLIED. FAMILY MEMBERS PRESENT IN ROOM. CALL LIGHT IS WITHIN REACH, PATIENT INSTRUCTED TO CALL FOR ASSISTANCE NEEDED.
[2018-11-25 17:04] LABS: CREATINE KINASE MB 1.9 ng/mL (0-5.0)
--- NOTE | 2018-11-25 19:10 | NUR ---
PATIENT IS AWAKE AND IN STABLE CONDITION WITH NO S/S OF RESPIRATORY DISTRESS. NO PAIN VOICED. TELEMETRY APPLIED. FAMILY MEMBERS PRESENT IN ROOM. CALL LIGHT IS WITHIN REACH, PATIENT INSTRUCTED TO CALL FOR ASSISTANCE NEEDED. REPORT GIVEN TO ONCOMING NURSE.
--- NOTE | 2018-11-25 23:16 | Operative Report ---
DATE OF PROCEDURE: 11/25/2018 SURGEON: Eliot Ibarra MD INDICATION: Angina. TECHNIQUE: The patient was stressed using 1 minute intravenous infusion of Lexiscan. Rest and stress Myoview imaging was obtained. Resting heart rate 82 beats and resting blood pressure 95/63. Following Lexiscan infusion, no EKG changes, no chest pain. Both nuclear imaging and resting stress is normal. Normal contractility of the left ventricle. CONCLUSIONS: 1. Normal Lexiscan nuclear stress test without evidence of ischemia or infarction. 2. LV ejection fraction of 57%. The accession number for this study is [id number]. Eliot Ibarra MD KSB/MODL /[id number]
[2018-11-26] VITALS: BP 103/54
[2018-11-26] MEDS: NITROGLYCERIN 2% OINT 1 GM PKT TOP SCH ×2 (00:52→05:47)
--- NOTE | 2018-11-26 03:52 | Consultation ---
DATE OF CONSULTATION: 11/25/2018 Cardiology Consultation REQUESTING PHYSICIAN: Dr. Blankenship. REASON FOR CONSULTATION: Chest pain. HISTORY OF PRESENT ILLNESS: This is a 58-year-old woman with history of hypertension and morbid obesity, who presents with complaints of chest pain. The patient reports she developed chest tightness yesterday that lasted all day, 10/10 in severity. This was not associated with any shortness of breath, nausea, or diaphoresis. The pain did not radiate. She denies any edema orthopnea or PND. REVIEW OF SYSTEMS: Negative except as per HPI. PAST MEDICAL HISTORY: Hypertension. PAST SURGICAL HISTORY: 1. Hysterectomy. 2. Carpal tunnel surgery. ALLERGIES: PLEASE SEE EMR. MEDICATIONS: Please see medication list. SOCIAL HISTORY: Denies tobacco, alcohol, or illicit drugs. FAMILY HISTORY: Pertinent for brother who with report of heart disease. PHYSICAL EXAMINATION: VITAL SIGNS: 96.2 degrees, pulse 55, respiratory rate 17, blood pressure 122/58, and oxygen saturation 97% on room air. GENERAL: Awake and alert, in no acute distress. Morbidly obese. HEENT: Normocephalic and atraumatic. Pupils are equal. No scleral icterus. NECK: Supple. No thyromegaly or cervical lymphadenopathy. No carotid bruits. LUNGS: Clear to auscultation bilaterally. No wheezes or crackles. CARDIOVASCULAR: Normal rate regular rhythm. No murmur. Normal S1 and S2. ABDOMEN: Soft and nontender. EXTREMITIES: No edema. NEUROLOGIC: Nonfocal. LABORATORY DATA: Troponin is 0.007. EKG, normal sinus rhythm. Low-voltage QRS. Chest x-ray, no acute cardiopulmonary abnormalities. IMPRESSION: 1. Chest pain. 2. Hypertension. 3. Morbid obesity. RECOMMENDATIONS: No evidence of myocardial infarction on serial cardiac biomarkers. Nuclear stress test performed without evidence of ischemia. Check fasting lipid panel. Blood pressure is controlled. Continue current cardiac medications. No further cardiac evaluation is indicated at this time. Obtain echocardiogram. Thank you for this consult. We will continue to follow. Iris Vargas MD ABS/MODL /[id number]
[2018-11-26 04:00] VITALS: BP 107/53
--- NOTE | 2018-11-26 07:05 | NUR ---
PATIENT IS IN STABLE CONDITION WITH NO S/S OF RESPIRATORY DISTRESS. PATIENT DENIES CHEST PAIN. TELEMETRY APPLIED. FAMILY MEMBERS PRESENT IN ROOM. CALL LIGHT IS WITHIN REACH, PATIENT INSTRUCTED TO CALL FOR ASSISTANCE NEEDED.
[2018-11-26 07:10] VITALS: BP 104/56
[2018-11-26] MEDS: FAMOTIDINE 20 MG TAB PO SCH (08:23)
[2018-11-26] MEDS: TOPIRAMATE 25 MG TAB PO SCH (08:23)
[2018-11-26] MEDS: PANTOPRAZOLE SOD 40 MG TABEC PO SCH (08:23)
[2018-11-26] MEDS: ASPIRIN 325 MG TAB PO SCH (08:23)
[2018-11-26 10:06] VITALS: BP 104/56
--- NOTE | 2018-11-26 10:36 | NUR ---
PATIENT DISCHARGE HOME- PATIENT OFF THE UNIT AT 1021 PER WHEELCHAIR ACCOMPANIED BY STAFF MEMBER TO THE FRONT LOBBY. PATIENT IS IN STABLE CONDITION WITH NO S/S OF RESPIRATORY DISTRESS. NO PAIN VOICED. IV REMOVED WITH TIP INTACT. DISCHARGE TEACHING AND INSTRUCTIONS GIVEN TO THE PATIENT. ALL PERSONAL ITEMS WERE TAKEN BY THE PATIENT.
--- NOTE | 2018-11-27 02:42 | Discharge Summary ---
DISCHARGE DIAGNOSIS: Chest pain, rule out myocardial infarction. HISTORY OF PRESENT ILLNESS: The patient is a lady with a history of asthma, hypertension, morbid obesity, who presented with some vague and atypical chest pain that was midsternal in nature, occurring without exertion, so she was brought in for chest pain to rule out TX protocol. Her cardiac enzymes were negative. EKG was negative. She was seen by Cardiology, who did a stress test and was unremarkable and that she also had an echo done that showed an EF of 45-50%. After admission, patient had no further chest pains, so she really wanted to go home, follow up with her primary care physician as an outpatient. So, the patient was discharged with her continuation of her home medication and follow up with her PCP in 1 to 2 weeks. Please see hospital chart for full details. MD SELENA Moon/LORRAINE /[id number]
== END 2018-11-26 10:38 | disposition home or self-care (01) | DRG 313 ==
LOC: FSED 20:52 → ERHOLD 23:35 → MED/SURG3 11-25 03:29
PROVIDERS: ADMIT Internal Medicine; ATTEND Internal Medicine
DX: R07.89 Other chest pain (principal); Z68.43 Body mass index [BMI] 50.0-59.9, adult; J45.909 Unspecified asthma, uncomplicated; I10 Essential (primary) hypertension; E66.01 Morbid (severe) obesity due to excess calories; K21.9 Gastro-esophageal reflux disease without esophagitis
CPT/HCPCS: 36415; 71046; 78452; 80053; 80061; 82550; 82553; 84484; 85025; 93005; 93017; 93306; 99284; A9502

== ENCOUNTER 2020-10-10 23:44 | Emergency (ER) | payer OTHER ==
[~2020-10-10] VITALS: Ht 160 cm; Wt 163.3 kg
[~2020-10-10 23:44] MED LIST: MICARDIS40 MG PO; PROAIR HFA INH8.5 GM INH
[2020-10-11] MEDS ORDERED: HYDROCODONE/APAP 5MG-325MG TAB PO ONE
[2020-10-11] MEDS ORDERED: DEXAMETHASONE SOD PHOS INJ 4 MG/ML VIAL IM ONE
[2020-10-11] MEDS ORDERED: ONDANSETRON HCL 4 MG ORAL DISINTEGRATING TAB PO ONE
[2020-10-11] MEDS ORDERED: HYDROCODONE/APAP 5MG-325MG TAB ONE (00:06)
[2020-10-11] MEDS ORDERED: DEXAMETHASONE SOD PHOS INJ 4 MG/ML VIAL ONE (00:06)
[2020-10-11] MEDS ORDERED: ONDANSETRON HCL 4 MG ORAL DISINTEGRATING TAB ONE (00:06)
[2020-10-11] MEDS ORDERED: IBUPROFEN IB200 MG PO (00:10)
[2020-10-11] MEDS ORDERED: ZOFRAN4 MG PO (00:10)
[2020-10-11] MEDS ORDERED: ACETAMINOPHEN-1 EAC4 PO (00:10)
== END 2020-10-11 00:20 | disposition home or self-care (01) ==
LOC: FSED 10-11
DX: S83.91XA Sprain of unspecified site of right knee, initial encounter (principal); I10 Essential (primary) hypertension; E66.01 Morbid (severe) obesity due to excess calories; Z68.44 Body mass index [BMI] 60.0-69.9, adult; M17.0 Bilateral primary osteoarthritis of knee
CPT/HCPCS: 96372; 99283; J1100; Q0162

== ENCOUNTER 2021-04-06 16:53 | Emergency (ER) | payer OTHER ==
[~2021-04-06] VITALS: Ht 160 cm; Wt 163.3 kg
[~2021-04-06 16:53] MED LIST changes: +ACETAMINOPHEN-1 EAC4 PO; +IBUPROFEN IB200 MG PO; +ZOFRAN4 MG PO
[2021-04-06] MEDS ORDERED: KETOROLAC TROMETHAMINE 30 MG/ML VIAL IV STA (18:03)
[2021-04-06] MEDS ORDERED: SODIUM CHLORIDE 0.9% 1000ML 1,000 ML IV SCH (18:15)
[2021-04-06] MEDS ORDERED: SODIUM CHLORIDE 0.9% 1000ML 1,000 ML ONE (18:46)
[2021-04-06] MEDS ORDERED: KETOROLAC TROMETHAMINE 60 MG/2 ML VIAL ONE (18:46)
[2021-04-06] MEDS ORDERED: SODIUM CHLORIDE 0.9% 50ML 50 ML ONE ×2 (18:55→21:30)
[2021-04-06] MEDS ORDERED: IOPAMIDOL 370 MG/ML 200 ML INFUS..BTL INJ ONE (18:56)
[2021-04-06] MEDS ORDERED: CEFTRIAXONE 1 GM in SODIUM CHLORIDE 0.9% 50ML 50 ML IV ONE (21:15)
[2021-04-06] MEDS ORDERED: CEFUROXIME500 MG PO (21:20)
[2021-04-06] MEDS ORDERED: NAPROSYN500 MG PO (21:20)
[2021-04-06] MEDS ORDERED: CEFTRIAXONE 1 GM VIAL ONE (21:30)
[2021-04-06 21:51] VITALS: BP 129/68
== END 2021-04-06 21:51 | disposition home or self-care (01) ==
LOC: FSED 18:05
DX: R10.11 Right upper quadrant pain (principal); N39.0 Urinary tract infection, site not specified; E11.9 Type 2 diabetes mellitus without complications; I10 Essential (primary) hypertension; M17.0 Bilateral primary osteoarthritis of knee; K76.0 Fatty (change of) liver, not elsewhere classified; E66.01 Morbid (severe) obesity due to excess calories; K21.9 Gastro-esophageal reflux disease without esophagitis
CPT/HCPCS: 74177; 99284; J0696; J1885; J7030; Q9967